=== PATIENT | female | born 1965 | race Caucasian/White ===

== ENCOUNTER 2016-12-30 20:25 | Emergency (ER) | payer OTHER ==
[~2016-12-30] VITALS: Ht 149.9 cm; Wt 70.2 kg
[~2016-12-30 20:25] MED LIST: ALLEGRA30 MG PO; AMARYL1 MG PO; CALCIUM + D3 E1 EACH PO; CENTRUM COMPLE1 EACH PO; CINNAMON500 MG PO; CRESTOR20 MG PO; FISH OIL + D31 EACH PO; HYDROCODON-ACE1 EAC7 PO; HYZAAR 100-21 TABLET PO; JANUMET 50/11 TABLET PO; NEXIUM40 MG PO; NORVASC5 MG PO; SINGULAIR10 MG PO; SYMBICORT60 INHALA1 IH; VENTOLIN HFA18 GM IH
[2016-12-30 20:53] LABS: POINT-OF-CARE METER ID UU13113778
[2016-12-30 21:47] LABS: EOSINOPHIL (%) 2.5 % (0-5); EOSINOPHIL COUNT 0.2 K/uL (0-0.3); HEMATOCRIT 32.1 % (36.0-46.0); IMMATURE GRANULOCYTE (%) 0.2 % (0.0-0.7); INSTRUMENT ABS NEUTROPHIL CT 6.8 K/uL; LYMPHOCYTE COUNT 1.4 K/uL (1.0-2.8); MCH 23.8 PG (29.0-34.0); MCHC 31.8 G/DL (30.0-36.0); MCV 74.8 FL (83-99); MEAN PLAT.VOLUME 10.6 uM^3 (9.5-12.4); MONOCYTE (%) 6.7 % (3-12); MONOCYTE COUNT 0.6 K/uL (0-0.8); NEUTROPHIL (%) 75.4 % (45-76); NEUTROPHIL COUNT 6.8 K/uL (1.8-6.4); PLATELET COUNT 209 K/uL (156-360); RBC DIS.WIDTH-CV 17.2 % (11.8-14.6); RBC DIS.WIDTH-SD 46.2 % (39-53); RED BLOOD COUNT 4.29 M/uL (3.80-5.20); WHITE BLOOD COUNT 9.1 K/uL (4.1-10.2)
[2016-12-30 21:54] LABS: CHLORIDE 109 mEq/L (99-109); POTASSIUM 3.5 mEq/L (3.7-5.4); SODIUM 143 mEq/L (136-147)
[2016-12-30 21:56] LABS: GLUCOSE 119 mg/dL (70-99)
[2016-12-30 21:57] LABS: ANION GAP 12 MEQ/L (2-14)
[2016-12-30 22:00] LABS: GFR ESTIMATE (CALCULATED) > 59 mL/min/
[2016-12-30 22:01] LABS: UREA NITROGEN (BUN) 14 mg/dL (9-23)
[2016-12-30 22:06] LABS: TROP-I INTERPRETATION NEGATIVE; TROPONIN-I < 0.01 ng/mL (0.0-0.30)
[2016-12-31 03:40] VITALS: BP 116/78
== END 2016-12-31 02:40 | disposition home or self-care (01) ==
LOC: EME 20:25
PROVIDERS: Emergency Medicine
PROC: 0HQ1XZZ Repair Face Skin, External Approach (ICD-10-PCS; principal; 2016-12-31)
DX: R55 Syncope and collapse (principal); S01.81XA Laceration without foreign body of other part of head, initial encounter; W19.XXXA Unspecified fall, initial encounter; Z88.0 Allergy status to penicillin
CPT/HCPCS: 70450; 80048; 82948; 84484; 85025; 93005; 99281; 99284